=== PATIENT | female | born 1980 | race Caucasian/White ===

== ENCOUNTER 2017-04-28 11:34 | Inpatient (IN) | payer BC ==
[2017-04-28 13:13] LABS: Hematocrit 37 % (35-47); Hemoglobin 12.7 g/dl (12.0-16.0); Mean Corpuscular HGB Conc 34 g/dl (31-36); Mean Corpuscular Hemoglobin 30 pg (27-31); Mean Corpuscular Volume 89 fL (80-97); Mean Platelet Volume 8 um3 (7.4-10.4); Red Blood Count 4.21 10^6/ul (4.0-5.4); Red Cell Distribution Width 14 % (10.5-15); White Blood Count 10.4 10^3/ul (3.5-10.8)
[2017-04-28 13:52] LABS: Albumin 2.9 g/dL (3.2-5.2); BUN/Creatinine Ratio 20.4 (8-20); Calcium 8.8 mg/dL (8.6-10.3); EGFR African American 185.9 (>60); EGFR Non-African American 144.6 (>60); Globulin 2.8 g/dL (2-4); Potassium 3.9 mmol/L (3.5-5.0); Total Bilirubin 0.3 mg/dL (0.2-1.0); Total Protein 5.7 g/dL (6.4-8.9); Uric Acid 5.7 mg/dL (2.3-6.6)
[2017-04-28] MEDS ORDERED: OBEPIDURAL* 250 ML ONE (19:54)
[2017-04-28] MEDS ORDERED: Oxytocin in LR* 20 UNITS/1,000 ML BAG IVPB SCH (22:00)
[2017-04-28] MEDS ORDERED: Ondansetron INJ* 2 MG/ML VIAL IV ONE (22:07)
[2017-04-28] MEDS ORDERED: Ondansetron INJ* 2 MG/ML VIAL ONE (22:13)
[2017-04-29] MEDS ORDERED: Famotidine TAB* 20 MG PO PRN (00:17)
[2017-04-29] MEDS ORDERED: Sodium Citrate/Citric Acid* 15 ML UDC PO PRN (00:17)
[2017-04-29] MEDS ORDERED: Phenylephrine IV* 40 MCG/ML 10 ML SYRINGE IV PUSH PRN ×2 (00:17)
[2017-04-29] MEDS ORDERED: oxyCODONE/Acetamin 5/325 MG* TAB PO PRN (00:58)
[2017-04-29] MEDS ORDERED: Dibucaine 1% 28.35 GM TUBE PR PRN (00:58)
[2017-04-29] MEDS ORDERED: Acetaminophen TAB* 325 MG PO PRN (00:58)
[2017-04-29] MEDS ORDERED: Oxytocin in LR* 20 UNITS/1,000 ML BAG IVPB SCH (01:00)
[2017-04-29] MEDS ORDERED: OBEPIDURAL* 250 ML EPIDURAL SCH (01:00)
[2017-04-29] MEDS: Ibuprofen TAB* 600 MG PO PRN ×4 (02:11→21:18)
[2017-04-29] MEDS: Witch Hazel PAD* JAR TOPICAL PRN (02:45)
[2017-04-29] MEDS ORDERED: Simethicone CHEW TAB* 80 MG PO SCH (08:30)
[2017-04-29] MEDS: Docusate CAP* 100 MG PO SCH ×3 (09:09→21:18)
[2017-04-30] MEDS: Ibuprofen TAB* 600 MG PO PRN ×3 (06:38→19:55)
[2017-04-30 07:06] LABS: Hematocrit 34 % (35-47); Hemoglobin 11.5 g/dl (12.0-16.0); Mean Corpuscular HGB Conc 34 g/dl (31-36); Mean Corpuscular Hemoglobin 30 pg (27-31); Mean Corpuscular Volume 89 fL (80-97); Mean Platelet Volume 8 um3 (7.4-10.4); Red Blood Count 3.84 10^6/ul (4.0-5.4); Red Cell Distribution Width 15 % (10.5-15); White Blood Count 8.5 10^3/ul (3.5-10.8)
[2017-04-30] MEDS ORDERED: Ferrous Gluconate TAB* 324 MG TAB PO SCH (09:00)
[2017-04-30] MEDS: Docusate CAP* 100 MG PO SCH ×3 (12:13→19:55)
[2017-05-01] MEDS: Ibuprofen TAB* 600 MG PO PRN (06:10)
[2017-05-01 08:08] VITALS: BP 125/74
[2017-05-01] MEDS: Docusate CAP* 100 MG PO SCH (08:58)
[2017-05-01] MEDS: Witch Hazel PAD* JAR TOPICAL PRN (10:08)
== END 2017-05-01 10:46 | disposition home or self-care (01) | DRG 560 ==
LOC: MCHOBOUT 11:34 → MCHOB 11:40
PROVIDERS: ADMIT Nurse Practitioner; ATTEND Nurse Practitioner
PROC: 10E0XZZ Delivery of Products of Conception, External Approach (ICD-10-PCS; principal; 2017-04-28)
PROC: 0KQM0ZZ Repair Perineum Muscle, Open Approach (ICD-10-PCS; 2017-04-28)
PROC: 3E033VJ Introduction of Other Hormone into Peripheral Vein, Percutaneous Approach (ICD-10-PCS; 2017-04-28)
PROC: 10907ZC Drainage of Amniotic Fluid, Therapeutic from Products of Conception, Via Natural or Artificial Opening (ICD-10-PCS; 2017-04-28)
PROC: 10H07YZ Insertion of Other Device into Products of Conception, Via Natural or Artificial Opening (ICD-10-PCS; 2017-04-28)
PROC: 4A1H74Z Monitoring of Products of Conception, Cardiac Electrical Activity, Via Natural or Artificial Opening (ICD-10-PCS; 2017-04-28)
PROC: 10H073Z Insertion of Monitoring Electrode into Products of Conception, Via Natural or Artificial Opening (ICD-10-PCS; 2017-04-28)
PROC: 4A1HXCZ Monitoring of Products of Conception, Cardiac Rate, External Approach (ICD-10-PCS; 2017-04-28)
DX: O13.4 Gestational [pregnancy-induced] hypertension without significant proteinuria, complicating childbirth (principal); O99.344 Other mental disorders complicating childbirth; F41.9 Anxiety disorder, unspecified; O99.824 Streptococcus B carrier state complicating childbirth; Z3A.39 39 weeks gestation of pregnancy; Z37.0 Single live birth; O70.1 Second degree perineal laceration during delivery; Z87.891 Personal history of nicotine dependence
CPT/HCPCS: 36415; 80053; 84550; 85025; 86850; 86900; 86901; A9270-GY; J2405; J2540